=== PATIENT | female | born 1975 | race Caucasian/White ===

== ENCOUNTER 2022-06-09 18:53 | Emergency (ER) | payer OTHER ==
[2022-06-09] MEDS ORDERED: ASPIRIN 81 MG PO STA (19:20)
[2022-06-09] MEDS ORDERED: ACETAMINOPHEN TAB 500 MG TAB PO STA (19:21)
--- NOTE | 2022-06-09 19:29 | ED ---
Syncope HPI - General Stated Complaint: Chest pain,anxiety Time Seen by Provider: 06/09/22 19:08 Source: RN notes reviewed - History of Present Illness Initial Comments: Pleasant 47-year-old female who arrives via EMS. Patient states that she was having a good day with her chronic pain. Patient states she has a history of chronic pain, fibromyalgia, osteoarthritis. Patient states that she started cleaning house and was cooking dinner. Patient then was sitting down and started getting some tunnel-type vision and felt lightheaded. Patient states she then started getting sporadic chest pains. Patient states she took a n itroglycerin that her mother has. It sounds as if this made her more lightheaded. Patient nearly passed out. Patient then started getting anxious. Patient states that during the event she had hard time finding her words. Patient thought she might be having a stroke. However, sounds like there was no other focal deficits., Patient now has a headache after the nitroglycerin. No chest pain., no fever or chills, no changes in vision or hearing, no sore throat or difficulty with speech, no neck pain, , no abdominal pain, no nausea or vomiting, no changes in urination or bowel movements, no numbness or tingling, no extremity pain, no skin rashes or lesions. Past medical, surgical, social, and family history reviewed. MD Complaint: felt faint, almost passed out - Related Data Allergies Allergy/AdvReac Type Severity Reaction Status Date / Time No Known Allergies Allergy Verified 06/09/22 19:38 Review of Systems ROS Statement: Those systems with pertinent positive or pertinent negative responses have been documented in the HPI. ROS Other: All systems not noted in ROS Statement are negative. General Exam General appearance: anxious, obese Head exam: Present: atraumatic, normocephalic, normal inspection Eye exam: Present: normal appearance, PERRL, EOMI. Absent: scleral icterus, conjunctival injection, periorbital swelling ENT exam: Present: normal exam, normal oropharynx, mucous membranes moist, normal external ear exam. Absent: mucous membranes dry Neck exam: Present: normal inspection, full ROM. Absent: tenderness, meningismus, lymphadenopathy Respiratory exam: Present: normal lung sounds bilaterally, chest wall tenderness. Absent: respiratory distress, wheezes, rales, rhonchi, stridor, accessory muscle use, decreased breath sounds, prolonged expiratory Cardiovascular Exam: Present: regular rate, normal rhythm, normal heart sounds. Absent: systolic murmur, diastolic murmur, rubs, gallop, clicks GI/Abdominal exam: Present: soft, normal bowel sounds. Absent: distended, tenderness, guarding, rebound, rigid Extremities exam: Present: normal inspection, full ROM, normal capillary refill. Absent: tenderness, pedal edema, joint swelling, calf tenderness Back exam: Present: normal inspection Neurological exam: Present: alert, oriented X3, CN II-XII intact Psychiatric exam: Present: normal affect, normal mood Skin exam: Present: warm, dry, intact, normal color. Absent: rash Course Vital Signs 06/09/22 19:31 Temperature 97.8 F Pulse Rate 62 Respiratory 18 Rate Blood Pressure 102/50 O2 Sat by Pulse 96 Oximetry Medical Decision Making - Medical Decision Making Patient initially had tunnel vision and lightheadedness. Sounds as if the patient may have had a near syncopal episode and then Found That with Nitroglycerin. However the Patient Also States That She Had a Hard Time Finding Her Words. This One on for a Short Period of Time. States the Symptoms Occurred about an Hour and a Half Prior to Me Seeing Her. This Would've Been about an Hour Prior to Arrival to the ER. Given the Symptomology, near syncope versus TIA is within the differential. We'll order imaging, blood work, planned for reevaluation Patient apparently left AGAINST MEDICAL ADVICE without requesting to speak with me. According to the RN she was feeling better, refused medication, refuses further testing. I'm unsure why the patient left without telling me. However I did not ascertain the patient was upset at the time of my evaluation. Again patient left AGAINST MEDICAL ADVICE [employer] Dr. Giraldo Disposition Clinical Impression: Near syncope, Atypical chest pain Disposition: Left Against Medical Advice Condition: Undetermined Is patient prescribed a controlled substance at d/c from ED?: No Referrals: Marta Ramirez MD [Primary Care Provider] - 1-2 days
[2022-06-09 19:38] VITALS: BP 102/50; PULSE 62; RESP 18; TEMP 97.8
--- NOTE | 2022-06-09 19:59 | XR ---
EXAMINATION TYPE: XR chest 1V portable DATE OF EXAM: 06/09/2022 COMPARISON: 09/05/2011 HISTORY: Chest pain TECHNIQUE: FINDINGS: Heart and mediastinum are normal. Lungs are clear. Diaphragm is normal. Bony thorax is inta ct. IMPRESSION: Normal chest. No adverse change
--- NOTE | 2022-06-09 20:40 | CT ---
EXAMINATION TYPE: CT brain wo con DATE OF EXAM: 06/09/2022 COMPARISON: 09/05/2011 HISTORY: Speech difficulty CT DLP: 1936.4 mGycm Automated exposure control for dose reduction was used. Images of the brain obtained without contrast. Ventricles have normal size. There is no mass effect or midline shift. No sign of intracranial hemorr dalila. Calvarium is intact. Skull base is intact. IMPRESSION: Negative unenhanced head CT scan. No change.
== END 2022-06-09 20:37 | disposition left against medical advice (07) ==
LOC: EC 18:53
DX: R07.89 Other chest pain (principal); R55 Syncope and collapse; Z53.29 Procedure and treatment not carried out because of patient's decision for other reasons
CPT/HCPCS: 70450; 71045; 99285